=== PATIENT | female | born 2000 | race Hispanic/Latino ===

== ENCOUNTER → 2023-09-16 13:49 | Outpatient (CLI) | payer OTHER, MEDICAID, SELFPAY ==
[2023-09-16 14:28] LABS: Add Manual Diff / Slide Review NO; Basophils Absolute Auto 0 /uL (0-100); Basophils Percent Auto 0.2 % (0-2); Eosinophils Absolute Auto 100 /uL (0-450); Eosinophils Percent Auto 1.2 % (2-4); Hematocrit 36.7 % (36-46); Hemoglobin 12.8 g/dL (12.0-16.0); Lymphocytes Absolute Auto 1500 /uL (1100-4500); Lymphocytes Percent Auto 12.7 % (25-40); Mean Corpuscular HGB Conc 34.9 % (30-36); Mean Corpuscular Volume 88.7 fL (80-100); Monocytes Absolute Auto 600 /uL (0-900); Neutrophils Absolute Auto 9500 /uL (1500-7000); Neutrophils Percent Auto 80.9 % (50-75); Platelet Count 310 X10^3/uL (150-400); Red Blood Cell Count 4.13 X10^6/uL (4.0-5.2); Red Cell Distribution Width 12.7 % (11.6-14.8); White Blood Cell Count 11.7 X10^3/uL (4.5-11.0)
[2023-09-16 15:35] LABS: Appearance Urine UA CLOUDY; Bilirubin Urine UA NEGATIVE (NEGATIVE); Color Urine UA YELLOW; Glucose Urine UA NEGATIVE (Negative); Ketones Urine UA TRACE (NEGATIVE); Leukocyte Esterase Urine UA NEGATIVE (NEGATIVE); Nitrite Urine UA NEGATIVE (Negative); Occult Blood Urine UA NEGATIVE (Negative); Protein Urine UA NEGATIVE (Negative); pH Urine UA 7.5 (4.5-8.0)
[2023-09-16 15:47] LABS: Hepatitis B Surface Antigen NEGATIVE s/c (NEGATIVE); Rubella Antibody IgG 13.3 IU/mL (>15)
[2023-09-16 15:59] LABS: HIV 1 & 2 Ab/Ag 4th Gen Combo NEGATIVE (NEGATIVE); Hep C Virus Ab w/Reflex Quant NEGATIVE s/c (NEGATIVE)
[2023-09-18 05:13] LABS: RPR Screen Non Reactive (Non Reactive)
[2023-09-18 09:43] LABS: Varicella IgG Antibody 680 index (Immune >165)
== END ==
PROVIDERS: Referring Provider Family Medicine; Visit Provider Family Medicine
DX: Z34.80 Encounter for supervision of other normal pregnancy, unspecified trimester (principal)
CPT/HCPCS: 36415; 80055; 81003; 86787; 86803; 86850; 86900; 86901; 87077; 87086; 87147; 87389

== ENCOUNTER 2023-10-27 20:09 | Emergency (ER) | payer OTHER, SELFPAY ==
[2023-10-27 20:17] VITALS: BP 132/75; PULSE 98; RESP 24; TEMP 36.9; O2SAT 97; BMI 24.5
--- NOTE | 2023-10-27 20:36 | ED_ITS ---
HPI - General Adult General Chief complaint: OB/Uterine Contractions Stated complaint: 17 wks /light headed/abd pain Time Seen by Provider: 10/27/23 20:28 Source: patient Mode of arrival: Ambulatory History of Present Illness HPI narrative: Patient is a 23-year-old female. She has a at approximately 17 weeks EGA. She is under the care of Ob. She states she is here because she had an episode earlier today where stated that she became lightheaded. Did have very short episode of palpitations. No shortness of breath. The stated complaint was that she was having abdominal pain but when I talked to her she was not having abdominal pain. States it was more nausea. No back pain. No loss of fluid. No vaginal bleeding. No urinary symptoms. No change in bowel habits. She now currently is asymptomatic. She stated that she had a family member who is a nurse who advised that she come in her blood sugar checked. Related Data Home Medications Medication Instructions Recorded Confirmed vitamin-ferrous sulfate tab PO 08/28/23 10/25/23 27 mg iron-folic acid 0.8 mg tablet Previous Rx's Medication Instructions Recorded doxylamine 10 mg-pyridoxine (vit 1 tab PO BID PRN nausea #60 tabs 09/05/23 B6) 10 mg tablet,delayed release (Diclegis) acetaminophen 500 mg tablet 1,000 mg (2 x 500 mg) PO Q6H PRN 09/27/23 (Acetaminophen Extra Strength) headache #90 tabs metoclopramide HCl 10 mg tablet 10 mg PO BID PRN migraine headache 09/27/23 #30 tabs Allergies Allergy/AdvReac Type Severity Reaction Status Date / Time No Known Drug Allergies Allergy Verified 10/27/23 20:22 Review of Systems Review of Systems Narrative: See HPI Patient History Surgical History (Updated 08/28/23 @ 08:06 by Katelyn Kingsley RN) [place] teeth extracted (~2019) Family History (Updated 08/28/23 @ 08:08 by Katelyn Kingsley RN) Mother Breast cancer Aunt Breast cancer Cancer Social History marital status: unmarried,living together number of children: 0 household members: significant other lives independently: Yes caregiver/support person: No housing: apartment pets and animals: No education level: high school 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 current occupational exposures/hazards: No (going to [employer] school, but hasn't started clinicals yet) special gaurang needs: No travel history: recent ([place] and [place]) seatbelt use: always water heater temp set < 120 deg: Yes working smoke detector in home: Yes fire extinguisher in home: Yes carbon monox detector in home: Yes firearms in home: No do you feel safe at home: Yes Smoking Status: Former smoker second hand exposure: Yes (s/o smokes and vapes, but not around pt) alcohol intake: former (~1-2/week when not ) substance use type: does not use during the past year weight has: remained stable well-balanced diet: daily or most days daily servings fruits/ve-4 caffeine: No 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) Smoking Status: Former smoker tobacco type: vaping Substance Use Type: does not use Exam Initial Vital Signs Initial Vital Signs: Vital Signs Temperature 98.5 F 10/27/23 20:17 Pulse Rate 98 H 10/27/23 20:17 Respiratory Rate 24 10/27/23 20:17 Blood Pressure 132/75 10/27/23 20:17 Pulse Oximetry 97 10/27/23 20:17 Oxygen Delivery Method Room Air 10/27/23 20:17 Const General: cooperative, comfortable and No ill appearing HENMT Head: normal to inspection and normocephalic Resp Effort & Inspection: normal respiratory effort Auscultation: clear to auscultation bilaterally Cardio Rate: regular rate Rhythm: regular rhythm GI Inspection: normal to inspection and non-distended Palpation: soft, No firm, No guarding and No tender Skin General: no rashes or lesions noted Neuro General: patient alert, patient awake, patient oriented x3 and moves all extremities Speech: speech normal Extrem General: normal to inspection and capillary refill normal Course Vital Signs Vital signs: Vital Signs - 8 hr 10/27/23 20:17 Temperature 98.5 F Pulse Rate 98 H Respiratory Rate 24 Blood Pressure 132/75 Pulse Oximetry 97 Oxygen Delivery Method Room Air Medical Decision Making Lab Data Lab results reviewed: Yes I reviewed the patient's lab results. Labs: Point of Care Testing Glucose POC 94 Urine Dip Bedside Urine Glucose Negative Bedside Urine Bilirubin - Negative Bedside Urine Ketone - Negative Urine Specific [place] 1.010 Bedside Urine Occult Blood - Negative Bedside Urine pH 6.0 Bedside Urine Protein - Negative Bedside Urine Urobilinogen - Negative Bedside Urine Nitrite - Negative Bedside Urine Leukocytes - Negative Esterase Point of care testing: Point of Care Testing Glucose POC 94 Urine Dip Bedside Urine Glucose Negative Bedside Urine Bilirubin - Negative Bedside Urine Ketone - Negative Urine Specific [place] 1.010 Bedside Urine Occult Blood - Negative Bedside Urine pH 6.0 Bedside Urine Protein - Negative Bedside Urine Urobilinogen - Negative Bedside Urine Nitrite - Negative Bedside Urine Leukocytes - Negative Esterase MDM Narrative Medical decision making narrative: heart tones in the 140s. Blood sugar is unremarkable. Urinalysis is unremarkable. She is now asymptomatic. Once again there is no abdominal pain. She describes more nausea at the time of the event. She has no other related issues. I do feel that we can hold on labs for now. No indication for radiologic studies. Will have her OB doctor as scheduled. Discussed return precautions and follow-up instructions. She expressed understanding and agreement. Discharge Plan Departure Patient Disposition: Home Clinical Impression: , Lightheaded Instructions: DI for -- Discomforts and Remedies Activity Restrictions/Additional Instructions: Be sure that you continue to keep all of your medical appointments. Continue to take all medications as directed. Return to the emergency department for new symptoms. Prescriptions: No Action acetaminophen [Acetaminophen Extra Strength] 500 mg tablet 1,000 mg PO Q6H PRN (Reason: headache) Qty: 90 1RF metoclopramide HCl 10 mg tablet 10 mg PO BID PRN (Reason: migraine headache) Qty: 30 1RF doxylamine-pyridoxine (vit B6) [Diclegis] 10-10 mg tablet,delayed release (DR/EC) 1 tab PO BID PRN (Reason: nausea) Qty: 60 3RF vit-ferrous sulfat-FA 27 mg iron- 0.8 mg tablet PO Referrals: Jorge Guerrero MD [Primary Care Provider] - Stand Alone Forms: Patient Portal/API
== END 2023-10-27 21:03 | disposition home or self-care (01) ==
PROVIDERS: Emergency Provider Emergency Medicine; PCP Family Medicine
DX: O26.892 Other specified pregnancy related conditions, second trimester (principal); R00.2 Palpitations; R42 Dizziness and giddiness; Z3A.17 17 weeks gestation of pregnancy
CPT/HCPCS: 81003; 82962; 99282

== ENCOUNTER → 2023-11-18 16:17 | Outpatient (CLI) | payer OTHER, MEDICAID, SELFPAY ==
--- NOTE | 2023-11-18 16:18 | DI.US.S_ITS ---
PROCEDURE: US OB >= 14 WEEKS FETUS INDICATIONS: OUTSIDE/PRIOR DATING DATA: Last menstrual period (LMP): 06/27/2023. LMP-based estimated date of delivery (PASTORA): 04/02/2024. First dating scan (date and location): Not available. Estimated date of delivery (PASTORA) from first dating scan: Not available. The calculations are made using the working PASTORA of 04/02/2024. TECHNIQUE: Real-time scanning was performed of the fetus, with image documentation and biometric measurements. Endovaginal scanning: Not performed. COMPARISON: None. FINDINGS: General: A single living intrauterine gestation is present. Presentation: Vertex. Placenta: Placental position is anterior , without previa. Amniotic fluid index: 10.7 cm, normal range is 5-24 cm. Single deepest vertical pocket is 3.8 cm. heart rate: 132 beats per minute. Maternal cervical canal: 3.9 cm long. Normal lower limit is 2.5 cm. biometrics: Biparietal diameter: 20 weeks 3 days Head circumference: 19 weeks 5 days Abdominal circumference: 20 weeks 4 days Femur length: 19 weeks 6 days Clinically estimated gestational age: 20 weeks 4 days Composite gestational age from present scan: 20 weeks 1 day Estimated weight and percentile: 337 g; 25% for gestational age. Anatomic survey: Neuro: Ventricles are non-dilated at less than 10 mm. Cisterna magna is normal at 3-11 mm. Cerebellum is normal in size and morphology. Nuchal skin fold: Normal at less than 6 mm between 14-21 weeks gestational age. Face: Nose and lips, facial profile are normal. Spine: No evidence for spina bifida. Heart: 4-chambered heart is present, with normal left ventricular outflow tract. The right ventricular outflow tract is suboptimally visualized. Diaphragm: Diaphragm is intact. Stomach: Left-sided stomach is present. Kidneys: No hydronephrosis. Normal is less than 5 mm in 2nd trimester, less than 7 mm in 3rd trimester. Cord: 3-vessel cord has orthotopic insertion. Bladder: Normal in size. Extremities: All 4 extremities identified. IMPRESSION: 1. A single living intrauterine gestation with appropriate interval growth. 2. Suboptimal visualization of the right ventricular outflow tract. Otherwise normal anatomic survey. We strive to produce accurate, complete, and clear reports of imaging services. To assist us in improving patient care, this report was composed using standard report templates and voice recognition software. Therefore, it may contain abnormal punctuation, insertions and/or omissions. Occasional wrong-word or sound-alike substitutions may occur. Though we review the report and make efforts to correct it, we do recommend that the report be read carefully in proper context to recognize any text inaccuracies. Dictated by: Lelia Donahue M.D. on 11/20/2023 at 12:32 Approved by: Lelia Donahue M.D. on 11/20/2023 at 12:39
== END ==
LOC: US 16:17
PROVIDERS: PCP Family Medicine; Referring Provider Family Medicine; Visit Provider Family Medicine
DX: Z34.82 Encounter for supervision of other normal pregnancy, second trimester (principal); Z3A.20 20 weeks gestation of pregnancy
CPT/HCPCS: 76811

== ENCOUNTER → 2023-12-06 13:41 | Outpatient (CLI) | payer OTHER, MEDICAID, SELFPAY ==
--- NOTE | 2023-12-06 13:30 | DI.US.S_ITS ---
PROCEDURE: US OB LIMITED INDICATIONS: Visualization of Rt ventricular outflow tract OUTSIDE/PRIOR DATING DATA: Last menstrual period (LMP): 06/27/2023 LMP-based estimated date of delivery (PASTORA): 04/02/2024. First dating scan (date and location): 11/18/2023. Estimated date of delivery (PASTORA) from first dating scan: 04/02/2024. TECHNIQUE: Real-time scanning was performed of the fetus, with image documentation and biometric measurements. COMPARISON: None. FINDINGS: General: A single living intrauterine gestation is present. Presentation: Vertex. Placenta: Placental position is anterior, without previa. Amniotic fluid index: 10.7 cm, normal range is 5-24 cm. Single deepest vertical pocket is 3.1 cm. heart rate: 157 beats per minute. Maternal cervical canal: 3.5 cm long. Normal lower limit is 2.5 cm. Clinically estimated gestational age: 23 weeks 1 day Normal appearance of the RVOT which was not well seen on prior exam. IMPRESSION: 1. Single living IUP redemonstrated with age estimated 23 weeks 1 day by prior ultrasound. 2. Normal appearance of the RVOT which was not well seen on prior exam. We strive to produce accurate, complete, and clear reports of imaging services. To assist us in improving patient care, this report was composed using standard report templates and voice recognition software. Therefore, it may contain abnormal punctuation, insertions and/or omissions. Occasional wrong-word or sound-alike substitutions may occur. Though we review the report and make efforts to correct it, we do recommend that the report be read carefully in proper context to recognize any text inaccuracies. Dictated by: Conrad HEATH Interpreted: Evans Donaldson MD on 12/06/2023 at 14:51 Transcribed by: CORBY on 12/06/2023 at 14:55 Approved by: Evans Donaldson M.D. on 12/06/2023 at 16:33
== END ==
PROVIDERS: Referring Provider Family Medicine; Visit Provider Family Medicine
DX: Z34.80 Encounter for supervision of other normal pregnancy, unspecified trimester (principal); Z3A.23 23 weeks gestation of pregnancy
CPT/HCPCS: 76815

== ENCOUNTER → 2023-12-20 10:47 | Outpatient (CLI) | payer OTHER, MEDICAID, SELFPAY ==
[2023-12-20 17:35] LABS: GTT (PREG) 1 Hour PP 50gm Dose 129 mg/dL (76-139)
== END ==
PROVIDERS: Referring Provider Family Medicine; Visit Provider Family Medicine
DX: Z34.80 Encounter for supervision of other normal pregnancy, unspecified trimester (principal)
CPT/HCPCS: 36415; 82950

== ENCOUNTER 2024-01-22 11:18 | Outpatient (CLI) | payer OTHER, MEDICAID, SELFPAY | END 2024-01-22 12:10 | disposition home or self-care (01) | LOC: LABOR 12:50 → OB 01-23 11:56 | PROVIDERS: PCP Family Medicine; Referring Provider Family Medicine; Visit Provider Family Medicine | DX: O42.913 Preterm premature rupture of membranes, unspecified as to length of time between rupture and onset of labor, third trimester (principal); Z3A.29 29 weeks gestation of pregnancy | CPT/HCPCS: 59025; 84112; G0378; G0379 ==

== ENCOUNTER 2024-02-10 11:00 | Outpatient (CLI) | payer OTHER, MEDICAID, SELFPAY ==
--- NOTE | 2024-02-10 11:29 | P.TNLD_ITS ---
Visit Information Visit Information Date of evaluation: 02/10/24 Primary OB Provider: Jorge Guerrero On-call OB Provider: Tory Mcpherson Reason for Evaluation: Yes non-stress test Comments/Additional reasons for admission: Patient presented with panic attack at work. Resolved with rest. 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 current occupational exposures/hazards: No (going to [employer], but hasn't started clinicals yet) special gaurang needs: No travel history: recent ([place] and [place]) seatbelt use: always water heater temp set < 120 deg: Yes working smoke detector in home: Yes fire extinguisher in home: Yes carbon monox detector in home: Yes firearms in home: No do you feel safe at home: Yes Smoking Status: Former smoker second hand exposure: Yes (s/o smokes and vapes, but not around pt) alcohol intake: former (~1-2/week when not ) substance use type: does not use during the past year weight has: remained stable well-balanced diet: daily or most days daily servings fruits/ve-4 caffeine: No 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 Safe for discharge home. Recommend anxiety discussion with primary OB doctor. OB Disposition: home
== END 2024-02-10 11:40 | disposition home or self-care (01) ==
LOC: OB 02-13 12:16
PROVIDERS: PCP Family Medicine; Referring Provider Student in an Organized Health Care Education/Training Program; Visit Provider Student in an Organized Health Care Education/Training Program
DX: O26.893 Other specified pregnancy related conditions, third trimester (principal); F41.0 Panic disorder [episodic paroxysmal anxiety]; Z3A.32 32 weeks gestation of pregnancy
CPT/HCPCS: 59025; G0378; G0379

== ENCOUNTER → 2024-03-06 09:26 | Outpatient (CLI) | payer BC, OTHER, MEDICAID, SELFPAY ==
[2024-03-07 10:09] LABS: Strep Grp B PCR POS for Grp B Strep
== END ==
PROVIDERS: PCP Family Medicine; Referring Provider Family Medicine; Visit Provider Family Medicine
DX: Z34.80 Encounter for supervision of other normal pregnancy, unspecified trimester (principal)
CPT/HCPCS: 87653

== ENCOUNTER 2024-03-13 09:38 | Outpatient (CLI) | payer OTHER, MEDICAID, SELFPAY | END 2024-03-13 10:51 | disposition home or self-care (01) | LOC: LABOR 10:07 → OB 03-17 12:22 | PROVIDERS: PCP Family Medicine; Referring Provider Family Medicine; Visit Provider Family Medicine | DX: O26.893 Other specified pregnancy related conditions, third trimester (principal); R11.2 Nausea with vomiting, unspecified; R19.7 Diarrhea, unspecified; Z3A.37 37 weeks gestation of pregnancy | CPT/HCPCS: 59025; G0378; G0379 ==

== ENCOUNTER 2024-03-21 09:21 | Inpatient (IN) | payer OTHER, MEDICAID, SELFPAY ==
[2024-03-21] MEDS: LACTATED RINGERS 1,000 ML 100 ML IV ×2 (10:00→13:01)
[2024-03-21 10:47] LABS: Add Manual Diff / Slide Review NO; Basophils Absolute Auto 100 /uL (0-100); Basophils Percent Auto 0.3 % (0-2); Eosinophils Absolute Auto 100 /uL (0-450); Eosinophils Percent Auto 0.5 % (2-4); Hemoglobin 12.8 g/dL (12.0-16.0); Lymphocytes Absolute Auto 1600 /uL (1100-4500); Lymphocytes Percent Auto 9.3 % (25-40); Mean Corpuscular HGB Conc 33.7 % (30-36); Mean Corpuscular Hemoglobin 29.7 PG (26-34); Monocytes Absolute Auto 900 /uL (0-900); Monocytes Percent Auto 5.3 % (3-14); Neutrophils Absolute Auto 14500 /uL (1500-7000); Neutrophils Percent Auto 84.6 % (50-75); Platelet Count 329 X10^3/uL (150-400); Red Blood Cell Count 4.31 X10^6/uL (4.0-5.2); White Blood Cell Count 17.2 X10^3/uL (4.5-11.0)
[2024-03-21 11:00] VITALS: BP 132/83
[2024-03-21] MEDS: AMPICILLIN 2,000 MG in SODIUM CHLORIDE 0.9% 100 ML 200 MG IV (12:00)
--- NOTE | 2024-03-21 12:52 | PM.AN.REGBLK ---
Regional Block Pre-procedure Procedure: Continuous Lumbar Epidural for L&D Attending OB provider: Jorge Guerrero PMH/ROS narrative: ROS neg with exception of GERD with this PSH/Anesthesia history narrative: None Exam narrative: See pre-procedure form. ASA Class: II Labs: Hct 38.0 % (36-46) 03/21/24 10:20 Plt Count 329 X10^3/uL (150-400) 03/21/24 10:20 Medications: Current Medications Generic Name Dose Route Start Last Admin Trade Name Freq PRN Reason Stop Dose Admin Carboprost Tromethamine 250 mcg 03/21/24 09:58 Carboprost 250 Mcg/Ml Ampul IM Q90M PRN Bleeding Oxytocin/Lactated Ringer's 30 unit in 500 mls @ 200 mls/hr 03/21/24 09:58 Oxytocin Premix IV CONT PRN Bleeding Protocol Tranexamic Acid 1,000 mg/ 100 mls @ 600 mls/hr 03/21/24 09:58 Sodium Chloride IV NOW PRN Bleeding Lactated Ringer's 1,000 mls @ 100 mls/hr 03/21/24 10:00 Lactated Ringers IV 03/21/24 19:59 CONT LISBET Ampicillin Sodium 1,000 mg/ 100 mls @ 200 mls/hr 03/21/24 17:00 Sodium Chloride IV Q6H LISBET Lidocaine HCl 20 ml 03/21/24 09:58 Lidocaine 1% 20 Ml INJ INTRA-OP PRN Post Delivery Methylergonovine Maleate 0.2 mg 03/21/24 09:58 Methylergonovine 0.2 Mg Tablet PO Q6HR PRN Heavy Bleeding Methylergonovine Maleate 0.2 mg 03/21/24 09:58 Methylergonovine 0.2 Mg/Ml Vial IM NOW PRN Bleeding Mineral Oil 30 ml 03/21/24 09:58 Mineral Oil 30 Ml Udc TOP PRN PRN Version Misoprostol 800 mcg 03/21/24 09:58 Misoprostol 200 Mcg Tablet ME NOW PRN Bleeding Misoprostol 400 mcg 03/21/24 09:58 Misoprostol 200 Mcg Tablet SL NOW PRN Bleeding Naloxone HCl 0.2 mg 03/21/24 09:58 Naloxone 0.4 Mg/Ml Vial IV Q2MIN PRN Opiate Reversal Oxytocin 10 unit 03/21/24 09:58 Oxytocin 10 Unit/Ml Vial IM NOW PRN Bleeding Allergies: Allergies Allergy/AdvReac Type Severity Reaction Status Date / Time No Known Drug Allergies Allergy Verified 03/20/24 09:41 Procedure Insertion date: 03/21/24 Insertion time: 12:21 Prep/Local: 1% lidocaine Interspace: L4-5 Patient position: sitting Needle: 17 gauge Tuohy Loss of resistance with: saline TERI at (cm): 7 Catheter placed at SKIN (cm): 14 Catheter in SPACE (cm): 7 Sensory level: T10 Insertion: No CSF, No Blood, No Paresthesia with insertion, No Paresthesia with injection and No Test dose reaction Initial Medications TEST DOSE time: 12:28 BOLUS DOSE time: 12:40 BOLUS DOSE (mL): 5 BOLUS DOSE med: 0.125% bupivacaine with fentanyl 10 mcg/mL Infusion Initial rate (mL/hr): 10 Post-procedure Anesthesia date START: 03/21/24 Anesthesia time START: 12:21 Anesthesia date END: 03/21/24 Anesthesia time END: 21:57 Post-procedure Anesthesia Assessment: Yes CV function: HR/BP stable, Yes Resp function: RR/sat/airway adequate, Yes Post-op hydration adequate, Yes Pain control adequate, Yes Nausea & vomiting absent, Yes Temperature > 36 C, Yes Mental status appropriate and Yes Anesthesia complications
[2024-03-21] MEDS: ONDANSETRON 4 MG/2 ML INJ IV (13:18)
--- NOTE | 2024-03-21 13:26 | P.HPOB_ITS ---
OB HPI Date/Time Date of admission: 03/21/24 Date Patient Seen: 03/21/24 Time Patient Seen: 13:27 History of Present Condition Chief complaint: OBS OF LABOR PASTORA Calculator 2 Estimated Delivery Date Method Current WG Current Estimate 04/02/24 LMP (Certain) 38w 2d Estimated Gestational Age (weeks): 38+2 : 3 Para: 0 Narrative: Nikki is a 23-year-old at GA 38+2 weeks presenting for labor. Had bloody show around 3:30 a.m. with subsequent onset of regular painful contractions around 4:00 a.m. She presented to the center at approximately 9:00 a.m. and was found to be 6 cm dilated. Endorses normal movement. Denies vaginal bleeding or leakage of fluid. notable for GBS positive and rubella nonimmune status. care: good care Dating criteria OB: LMP confirmed by 1st trimester US Ultrasounds: normal 1st trimester US and normal mid trimester US Obstetrical complications: none Medical complications OB: none Preadmission Labs Last OB Lab Results: 2 Blood Type B Positive 03/21/24 10:20 Antibody Screen Negative 03/21/24 10:20 Hct 38.0 % (36-46) 03/21/24 10:20 Hgb 12.8 g/dL (12.0-16.0) 03/21/24 10:20 Hep Bs Antigen Negative s/c (NEGATIVE) 09/16/23 13:56 Hepatitis C Antibody Negative s/c (NEGATIVE) 09/16/23 13:56 Rubella Antibody 13.3 IU/mL (>15) L 09/16/23 13:56 VZV IgG Antibody 680 index (Immune >165) 09/16/23 13:56 Glucose 1 Hr 50 gm 129 mg/dL (76-139) 12/20/23 12:20 Group B Strep (PCR) Pos for grp b strep H 03/06/24 09:26 Prior (ies) Past Pregnancies Del. Date GA/Weeks Labor Lgth Wt Sex Route Outcome Anesthesia Place Delv Breastfeed Preg Comp Name 11/03/21 6-7 elective 04/05/22 4 spontaneous Delivery Date: 11/03/21 Last Updated by: Katelyn Kingsley RN PO meds, no complications Delivery Date: 04/05/22 Last Updated by: Katelyn Kingsley RN passed spontaneously, no complications Evaluation Evaluation Baseline heart rate: 140 Variability: Moderate (11-25) monitor accelerations: Present Monitor Decelerations: Absent Contraction Frequency (minutes): 2 Uterine Contraction Intensity: Moderate Category of Tracing: Reactive Status: Category l Dilation (cm): 8 Effacement (%): 100 station: -1 Position of cervix: anterior Consistency: soft Comments: Bulging bag, exam per L&D nurse report PFSH Surgical History [place] teeth extracted (~2019) Family History Mother Breast cancer Aunt Breast cancer Cancer Social History marital status: unmarried,living together number of children: 0 household members: significant other lives independently: Yes caregiver/support person: No housing: apartment pets and animals: No education level: high school 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 current occupational exposures/hazards: No (going to [employer], but hasn't started clinicals yet) special gaurang needs: No travel history: recent ([place] and [place]) seatbelt use: always water heater temp set < 120 deg: Yes working smoke detector in home: Yes fire extinguisher in home: Yes carbon monox detector in home: Yes firearms in home: No do you feel safe at home: Yes Smoking Status: Never smoker second hand exposure: Yes (s/o smokes and vapes, but not around pt) alcohol intake: former (~1-2/week when not ) substance use type: does not use during the past year weight has: remained stable well-balanced diet: daily or most days daily servings fruits/ve-4 caffeine: No 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) Meds Home Medications and Allergies Home Medications Medication Instructions Recorded Confirmed Type vit 168-iron 27 mg-folic 1 cap PO DAILY #30 caps 02/21/24 03/21/24 Rx acid 800 mcg-omega3 235 mg capsule (One-A-Day -1) hydroxyzine HCl 25 mg tablet See Rx Instructions PO BID PRN 03/13/24 03/21/24 Rx anxiety #20 tabs ondansetron 4 mg disintegrating 4 mg PO Q8H PRN nausea and 03/13/24 03/21/24 Rx tablet vomiting #20 tabs Allergies Allergy/AdvReac Type Severity Reaction Status Date / Time No Known Drug Allergies Allergy Verified 03/20/24 09:41 OB Exam Narrative Exam Narrative: General: Well-nourished, no distress HEENT: NC/AT, EOMI, moist mucous membranes CV: RRR, normal S1 S2, no m/g/r Resp: CTAB Abd: Gravid, soft, NTND, +BS Ext: Full ROM, no edema Skin: No rash or lesions Neuro: A&O x3, normal tone, no focal deficits Objective Labs 03/21/24 10:20 Labs: Laboratory Results - last 24 hr 03/21/24 10:20 WBC 17.2 H RBC 4.31 Hgb 12.8 Hct 38.0 MCV 88.0 MCH 29.7 MCHC 33.7 RDW 14.0 Plt Count 329 Neut % (Auto) 84.6 H Lymph % (Auto) 9.3 L [place] % (Auto) 5.3 Eos % (Auto) 0.5 L Baso % (Auto) 0.3 Neut # (Auto) 84786 H Lymph # (Auto) 1600 [place] # (Auto) 900 Eos # (Auto) 100 Baso # (Auto) 100 Blood Type B Positive Antibody Screen Negative Assessment and Plan Assessment and Plan Assessment and Plan narrative: 23-year-old at [place] 38+2 weeks in active labor. -admit to L&D -GBS positive, ppx indicated -pain control prn if desired by patient -PPH risk low -VTE risk low, SCDs with epidural -anticipate vaginal delivery Time-Based Coding :: 30 minutes spent with patient and on the chart (including review of chart, obtaining history, exam, reviewing outside data, placing orders, documenting exam and treatment plan, and counseling patient) on 03/21/2024.
[2024-03-21] MEDS: AMPICILLIN 1,000 MG in SODIUM CHLORIDE 0.9% 100 ML 200 MG IV ×2 (15:59→19:27)
[2024-03-21] MEDS: FENT 2MCG/ML BUPIV 0.125% EPI 200 MCG/100 ML PLAST..BAG 10 MCG EPIDURAL (20:18)
--- NOTE | 2024-03-21 22:29 | P.PCNOB_ITS ---
Events: Meconium Stained Fluid Labor & Delivery Delivery date: 03/21/24 Delivery augmentation: rupture of membranes and pitocin Delivery monitor: external FHT and external uterine Route of delivery: L&D Laceration Description: Perineal - 2nd Degree Delivery repair: vicryl Estimated blood loss (mL): 450 Anesthesia Type: Epidural Narrative: Admitted for spontaneous labor 03/21/2024 at 0921. She progressed adequately with AROM and Pitocin for labor augmentation. Patient fully dilated at 2114 and began pushing at 2126. Spontaneous vaginal delivery of a viable female infant in the OA position occurred at 2156. The was suctioned and stimulated at the perineum, and gave appropriate cry with movement of all extremities. Delayed cord clamping was observed for 60 seconds. The cord was clamped and cut, and the handed to mother for skin to skin. Cord blood and segment were obtained. The placenta was delivered without difficulty using gentle cord traction and found to be intact with a 3-vessel cord. After fundal massage the uterus was firm and bleeding stopped. The vagina and cervix were examined for lacerations. A second-degree perineal laceration was noted and repaired with 3- 0 Vicryl suture in the usual fashion. Patient stable with rooming in, bonding skin to skin and attempting to breastfeed. [place] Baby 1: Infant gender: Female Presentation: vertex Placenta delivery description: Spontaneous Cord Vessel Description: 3 Vessels and Around Extremity x2 (Left foot) score (1 min): 9 score (5 min): 9 weight: 6 lb 6.506 oz Plan for aftercare: Routine care
[2024-03-22 05:26] VITALS: TEMP 36.3
[2024-03-22] MEDS: IBUPROFEN 600 MG TABLET PO ×2 (05:26→20:37)
[2024-03-22] MEDS: PRENATAL VIT,CALC/IRON/FOLIC 1 TABLET 1 TAB PO (09:19)
[2024-03-22] MEDS: LANOLIN OINT 7 GM 1 APPLIC TOP (09:20)
[2024-03-22] MEDS: ACETAMINOPHEN 325 MG TABLET 650 MG PO ×2 (09:21→21:07)
[2024-03-22] MEDS: DERMOPLAST SPRAY 20% 60 ML 1 SPRAY TOP (09:21)
--- NOTE | 2024-03-22 12:49 | PM.OBPN.1 ---
Subjective - OB Subjective Patient comments: no complaints, pain well controlled and tolerating diet baby status: doing well and nursing well feeding status: exclusively breast feeding Date Patient Seen: 03/22/24 Time Patient Seen: 12:00 Exam Vital Signs (past 8 hours): - 03/22/24 20:37 Temperature 97.1 F L Narrative Exam Narrative: General: Well-appearing, well-nourished, no distress HEENT: Moist mucous membranes, no pallor CV: Regular rate and rhythm, no murmur auscultated Resp: CTAB, comfortable work of breathing Abdomen: Soft, bowel sounds present, fundus firm below umbilicus with appropriate tenderness Extremities: No edema, no calf tenderness or evidence of DVT Objective Labs 03/21/24 10:20 Assessment & Plan Assessment and Plan (1) (spontaneous vaginal delivery): Status: Acute (2) Second degree perineal laceration: Status: Acute Plan day: 1 plan OB: routine care Time-Based Coding :: 20 minutes spent with patient and on the chart (including review of chart, obtaining history, exam, reviewing outside data, placing orders, documenting exam and treatment plan, and counseling patient) on 03/22/2024.
[2024-03-22 20:37] VITALS: TEMP 36.2
--- NOTE | 2024-03-23 11:01 | PM.OBDS.1 ---
Discharge Providers Provider Date of admission: 03/21/24 09:21 Discharge Date: 03/23/24 Primary care physician: Jorge Guerrero MD Consults: 03/21/24 09:58 Consult to Anesthesiology Urgent Comment: Consulting Provider: Jorge Guerrero Reason for consultation: Epidural 03/22/24 22:47 Consult to Pharmacy Director Routine Comment: Discharge provider: Jorge Guerrero MD Summary Hospital Course Date Patient Seen: 03/23/24 Time Patient Seen: 11:01 Diagnoses: # #Second-degree perineal laceration Hospital Course: Admitted for normal labor on 03/21/2024. She progressed adequately with AROM and Pitocin for labor augmentation to complete dilation over the course of 12 hours. She had an uncomplicated of a live female infant with a second-degree perineal laceration that was repaired usual fashion. Her course was uncomplicated. At discharge patient is ambulating well, tolerating normal diet, breast-feeding without difficulty, and pain is adequately controlled. She reports bleeding is similar to normal menses. Peripartum Data Infant Delivery Method: Natural Vaginal Laceration Description: Perineal - 2nd Degree complications: none 1: Gender: Female Disposition of : home Discharge Diagnosis (1) (spontaneous vaginal delivery): Start Date: 03/21/24 Status: Acute (2) Second degree perineal laceration: Start Date: 03/21/24 Status: Acute Status at Discharge Cognitive/behavioral status at discharge: at baseline, oriented Functional status at discharge: independent ambulation Overall status at discharge: patient is progressing back to baseline Time Spent with Patient Time attestation: Total time spent providing and/or coordinating discharge services: 30 minutes Objective Labs 03/21/24 10:20 Exam Narrative Exam Narrative: General: Well-appearing, well-nourished, no distress HEENT: Moist mucous membranes, no pallor CV: Regular rate and rhythm, no murmur auscultated Resp: CTAB, comfortable work of breathing Abdomen: Soft, bowel sounds present, fundus firm below umbilicus with appropriate tenderness Extremities: No edema, no calf tenderness or evidence of DVT Discharge Plan Discharge Plan Patient Disposition: Home Discharge orders & Medications Prescriptions: New acetaminophen 325 mg Tablet 650 mg PO Q6HR PRN (Reason: Pain, Mild (1-3)) Qty: 180 0RF polyethylene glycol 3350 17 gram/dose powder 17 g PO DAILY Qty: 510 0RF Dermoplast (with menthol) 20-0.5 % Aerosol 1 spray topical Q1HR PRN (Reason: perineal pain) Qty: 78 0RF ibuprofen 600 mg Tablet 600 mg PO Q6HR PRN (Reason: Pain, Mild (1-3)) Qty: 90 0RF Purelan Cream 1 applic topical PRN PRN (Reason: Tenderness) Qty: 7 3RF Continued One-A-Day -1 27 mg iron- 800 mcg-235 mg capsule 1 cap PO DAILY Qty: 30 6RF ondansetron 4 mg tablet,disintegrating 4 mg PO Q8H PRN (Reason: nausea and vomiting) Qty: 20 0RF hydroxyzine HCl 25 mg tablet See Rx Instructions PO BID PRN (Reason: anxiety) Qty: 20 0RF Rx Instructions: 1/2-1 tab orally twice a day PRN; Follow up/Referrals: Jorge Guerrero MD [Primary Care Provider] - 05/05/24 2:00 pm (Please arrive 15 minutes early for check in!) Visit Report/Discharge Packet Stand Alone Forms: Discharge: Care, Patient Portal/API, Stroke Signs & Symptoms Discharge Data Primary Care Provider: Jorge Guerrero
[2024-03-23] MEDS: ACETAMINOPHEN 325 MG TABLET 650 MG PO (11:13)
[2024-03-23] MEDS: DOCUSATE 100 MG CAPSULE PO (11:19)
== END 2024-03-23 15:40 | disposition home or self-care (01) | DRG 807 ==
PROVIDERS: Admitting Provider Family Medicine; PCP Family Medicine; Referring Provider Family Medicine; Visit Provider Family Medicine
DX: O99.824 Streptococcus B carrier state complicating childbirth (principal); Z37.0 Single live birth; Z3A.38 38 weeks gestation of pregnancy; O70.1 Second degree perineal laceration during delivery
CPT/HCPCS: 36415; 59050; 85025; 86850; 86900; 86901; G0379; J0290; J2405